=== PATIENT | female | born 1955 | race Caucasian/White ===

== ENCOUNTER 2019-01-23 20:32 | Inpatient (IN) | payer BC, MEDICARE ==
[~2019-01-23] VITALS: Ht 165.1 cm; Wt 74.0 kg
[2019-01-24] VITALS: BP 150/77
[2019-01-24] MEDS ORDERED: ROSU20TA2 PO (00:37)
[2019-01-24] MEDS ORDERED: GABA100C PO (00:38)
[2019-01-24] MEDS ORDERED: ALPR-624 PO (00:39)
--- NOTE | 2019-01-24 00:55 | NUR ---
patient arrived on the floor with EMT's via [place]. Received report from ALFREDITO Lopez at [facility]. Pt came in for inter abd abscess s/t lap appy on 01/[address] Rizzo. pt has no other skin problems, lap sites on abd with steri strips and no s/s of infection. c/o pain 08/22. Dr. Patterson came in and admitted patient and ordered medications.
[2019-01-24] MEDS ORDERED: potassium CL 10mEq/100ml bag 100 ML IV PRN ×2 (01:00)
[2019-01-24] MEDS ORDERED: magnesium 2GM in 50ml NS 50 ML IV PRN (01:00)
[2019-01-24] MEDS ORDERED: potassium Cl 20 mEq SR tablet PO PRN (01:00)
[2019-01-24] MEDS ORDERED: ipratropium/albuterol 3ml nebule NEB PRN (01:00)
[2019-01-24] MEDS ORDERED: ondansetron/PF 4mg/2ml inj IV PRN (01:00)
[2019-01-24] MEDS ORDERED: HYDROmorphone inj. 0.5 MG/0.5 ML DISP.SYRIN IV PRN (01:00)
[2019-01-24] MEDS ORDERED: mag hydrox/Alum hydrox/simeth 30ml oral suspension PO PRN (01:00)
[2019-01-24] MEDS ORDERED: magnesium 4gm in 100ml NS 100 ML IV PRN (01:00)
[2019-01-24] MEDS: ALPRAZolam 0.5mg tablet PO PRN ×2 (01:18→23:38)
[2019-01-24] MEDS: HYDROmorphone 1 mg/ml syringe IV PRN ×4 (01:18→21:16)
[2019-01-24] MEDS: normal saline 1000ml 1,000 ML IV SCH ×3 (01:22→21:23)
[2019-01-24 03:00] LABS: BASOPHILS # (AUTO) 0.1 X10'3 (0-0.2); BASOPHILS % (AUTO) 0.5 % (0-1); EOSINOPHILS % (AUTO) 0.1 % (0-6); HEMATOCRIT 32.7 % (35.0-45.0); HEMOGLOBIN 11.2 g/dl (12.0-16.0); LYMPHOCYTES # (AUTO) 1.4 X10'3 (1.1-4.8); LYMPHOCYTES % (AUTO) 9.7 % (21-51); MEAN CORPUSCULAR HGB CONC 34.2 g/dL (33.0-36.5); MEAN CORPUSCULAR VOLUME 87.7 FL (78-98); MEAN PLATELET VOLUME 7.8 FL (7.4-10.4); MONOCYTES # (AUTO) 1.4 X10'3 (0-0.9); MONOCYTES % (AUTO) 9.8 % (2-12); NEUTROPHILS # (AUTO) 11.4 X10'3 (1.8-7.7); NEUTROPHILS % (AUTO) 79.9 % (42-75); PLATELET COUNT 466 X10'3 (140-440); RED BLOOD COUNT 3.73 X10'6 (4.20-5.60); RED CELL DISTRIBUTION WIDTH 13.6 % (11.5-14.5); WHITE BLOOD COUNT 14.3 X10'3 (4.5-11.0)
[2019-01-24 03:16] LABS: ALANINE AMINOTRANSFERASE 48 U/L (12-78); ALBUMIN 2.2 G/DL (3.4-5.0); ALBUMIN/GLOBULIN RATIO 0.5 (1.1-1.5); ALKALINE PHOSPHATASE 181 IU/L (46-116); ANION GAP 11 (8-16); ASPARTATE AMINO TRANSFERASE 31 U/L (10-37); BILIRUBIN,TOTAL 0.7 MG/DL (0.1-1.0); BLOOD UREA NITROGEN 14 MG/DL (7-18); BUN/CREATININE RATIO 22.6 (6.6-38.0); CALCIUM 8.1 MG/DL (8.5-10.1); CHLORIDE 105 MMOL/L (99-107); CREATININE 0.62 MG/DL (0.40-0.90); GLUCOSE 98 MG/DL (70-104); POTASSIUM 3.6 MMOL/L (3.5-5.1); SODIUM 138 MMOL/L (135-145); TOTAL CARBON DIOXIDE 22.5 MMOL/L (24-32); TOTAL PROTEIN 6.6 G/DL (6.4-8.2); eGFR > 90 ML/MIN
--- NOTE | 2019-01-24 06:47 | NUR ---
Problems reprioritized. Patient report given, questions answered & plan of care reviewed with ALFREDITO monsalve.
--- NOTE | 2019-01-24 06:47 | NUR ---
Patient in room [facility]. I have received report from Loida Dixon RN and had the opportunity to ask questions and assume patient care.
[2019-01-24 08:00] VITALS: BP 103/51
[2019-01-24] MEDS: K and/or MAG REPLACEMENT MC SCH ×2 (08:00→20:00)
[2019-01-24] MEDS: piperacillin/tazo 3.375gm/50ml 50 ML IV SCH ×3 (08:16→23:38)
[2019-01-24] MEDS: enoxaparin 40mg/0.4ml syringe SQ SCH (08:16)
[2019-01-24] MEDS: gabapentin 100mg capsule PO SCH ×3 (08:19→23:38)
[2019-01-24 11:00] VITALS: BP 83/55
[2019-01-24] MEDS: acetaminophen 325mg tablet PO PRN (12:09)
[2019-01-24 13:00] VITALS: BP 95/55
--- NOTE | 2019-01-24 16:34 | NUR ---
Malnutrition consult. Patient admitted with sepsis r/t s/p cholecystectomy and appendectomy surgery. Currently is NPO, is eager to begin eating again. Diet advancement will be per her surgeon, likely to have clear liquids this afternoon and advance as tolerated per bedside RN. Patient reports poor PO intake for two weeks r/t to the surgeries. Her usual body weight is reported to be between 155-160 lbs, currently weighs 163 lbs, no weight loss. Normal muscle strength, no edema. No malnutrition at this time. Patient given written high protein education handout with verbal review r/t infection, encouraged to eat protein when diet is advanced and she verbalized understanding. Will follow. Addendum: 01/24/19 at [address] Amended: Links added.
--- NOTE | 2019-01-24 16:45 | NUR ---
Malnutrition consult. Patient admitted with sepsis r/t s/p cholecystectomy and appendectomy surgery. Currently is NPO, is eager to begin eating again. Diet advancement will be per her surgeon, likely to have clear liquids this afternoon and advance as tolerated per bedside RN. Patient reports poor PO intake for two weeks r/t to the surgeries. Her usual body weight is reported to be between 155-160 lbs, currently weighs 163 lbs, no weight loss. Normal muscle strength, no edema. No malnutrition at this time. Patient given written high protein education handout with verbal review r/t infection, encouraged to eat protein when diet is advanced and she verbalized understanding. Will follow. Recommendation: 1. advance diet as medically indicated to heart healthy 2. bowel care as needed 3. weight per rx Addendum: 01/24/19 at [address] Amended: Links added. Addendum: 01/25/19 at [address] RD agree with note
--- NOTE | 2019-01-24 18:00 | NUR ---
Problems reprioritized. Patient report given, questions answered & plan of care reviewed with Cassandra GLASER.
[2019-01-24 18:45] VITALS: BP 140/78
--- NOTE | 2019-01-24 18:48 | NUR ---
Patient in room [facility]. I have received report from ALFREDITO Burgos and had the opportunity to ask questions and assume patient care.
[2019-01-24] MEDS: atorvastatin 20mg tablet PO SCH (21:00)
[2019-01-24] MEDS: lactobacillus rhamnosus 10,000 MMU CELLS/CAPSULE PO SCH (21:24)
[2019-01-25] VITALS (33 sets, daily range): BP systolic 104–145; BP diastolic 55–100
[2019-01-25] MEDS: HYDROmorphone 1 mg/ml syringe IV PRN ×3 (02:42→22:29)
[2019-01-25 06:44] LABS: BASOPHILS # (AUTO) 0.1 X10'3 (0-0.2); BASOPHILS % (AUTO) 0.8 % (0-1); EOSINOPHILS # (AUTO) 0.1 X10'3 (0-0.9); EOSINOPHILS % (AUTO) 0.5 % (0-6); HEMATOCRIT 29.7 % (35.0-45.0); HEMOGLOBIN 10.3 g/dl (12.0-16.0); LYMPHOCYTES # (AUTO) 1.4 X10'3 (1.1-4.8); LYMPHOCYTES % (AUTO) 14.6 % (21-51); MEAN CORPUSCULAR HEMOGLOBIN 31.1 PG (27.0-31.0); MEAN CORPUSCULAR HGB CONC 34.7 g/dL (33.0-36.5); MEAN CORPUSCULAR VOLUME 89.7 FL (78-98); MEAN PLATELET VOLUME 7.8 FL (7.4-10.4); MONOCYTES % (AUTO) 10.5 % (2-12); NEUTROPHILS # (AUTO) 7.1 X10'3 (1.8-7.7); NEUTROPHILS % (AUTO) 73.6 % (42-75); PLATELET COUNT 426 X10'3 (140-440); RED BLOOD COUNT 3.31 X10'6 (4.20-5.60); RED CELL DISTRIBUTION WIDTH 13.6 % (11.5-14.5); WHITE BLOOD COUNT 9.7 X10'3 (4.5-11.0)
--- NOTE | 2019-01-25 06:56 | NUR ---
Problems reprioritized. Patient report given, questions answered & plan of care reviewed with ALFREDITO Burgos.
[2019-01-25 07:02] LABS: ALANINE AMINOTRANSFERASE 46 U/L (12-78); ALBUMIN/GLOBULIN RATIO 0.5 (1.1-1.5); ALKALINE PHOSPHATASE 164 IU/L (46-116); ANION GAP 5 (8-16); ASPARTATE AMINO TRANSFERASE 41 U/L (10-37); BILIRUBIN,TOTAL 0.6 MG/DL (0.1-1.0); BLOOD UREA NITROGEN 13 MG/DL (7-18); BUN/CREATININE RATIO 23.6 (6.6-38.0); CALCIUM 7.9 MG/DL (8.5-10.1); CHLORIDE 106 MMOL/L (99-107); CREATININE 0.55 MG/DL (0.40-0.90); GLUCOSE 97 MG/DL (70-104); MAGNESIUM 1.9 MG/DL (1.5-2.4); POTASSIUM 3.8 MMOL/L (3.5-5.1); SODIUM 137 MMOL/L (135-145); TOTAL CARBON DIOXIDE 26.5 MMOL/L (24-32); TOTAL PROTEIN 6.2 G/DL (6.4-8.2); eGFR > 90 ML/MIN
[2019-01-25 07:16] LABS: PARTIAL THROMBOPLASTIN TIME 27 SECONDS (22-32)
[2019-01-25] MEDS: K and/or MAG REPLACEMENT MC SCH ×2 (08:00→20:00)
[2019-01-25] MEDS: enoxaparin 40mg/0.4ml syringe SQ SCH (08:00)
[2019-01-25] MEDS: gabapentin 100mg capsule PO SCH ×3 (08:29→23:02)
[2019-01-25] MEDS: lactobacillus rhamnosus 10,000 MMU CELLS/CAPSULE PO SCH ×2 (08:29→22:48)
[2019-01-25] MEDS: normal saline 1000ml 1,000 ML IV SCH ×2 (08:30→16:59)
[2019-01-25] MEDS: piperacillin/tazo 3.375gm/50ml 50 ML IV SCH ×3 (08:30→23:02)
[2019-01-25] MEDS: acetaminophen 325mg tablet PO PRN (09:22)
[2019-01-25] MEDS ORDERED: fentaNYL/PF 50MCG/1 ML 2ML syringe ONE ×3 (10:59→13:30)
[2019-01-25] MEDS ORDERED: midazolam 2 mg/2 ml injection ONE (10:59)
--- NOTE | 2019-01-25 13:56 | NUR ---
Lab called spoke to Sandy- received report that pt was positive for many white cells, many gram negative cells, many gram positive cocci. notified. Pt is in IR having an abscess drainage procedure.
--- NOTE | 2019-01-25 18:00 | NUR ---
Problems reprioritized. Patient report given, questions answered & plan of care reviewed with Cassandra GLASER.
--- NOTE | 2019-01-25 18:30 | NUR ---
Patient in room [facility]. I have received report from ALFREDITO Burgos and had the opportunity to ask questions and assume patient care.
[2019-01-25] MEDS: atorvastatin 20mg tablet PO SCH (21:00)
[2019-01-25] MEDS: ALPRAZolam 0.5mg tablet PO PRN (23:02)
[2019-01-26 00:15] VITALS: BP 163/91
[2019-01-26] MEDS: HYDROmorphone 1 mg/ml syringe IV PRN ×5 (02:34→20:11)
[2019-01-26] MEDS: normal saline 1000ml 1,000 ML IV SCH (04:45)
--- NOTE | 2019-01-26 06:20 | NUR ---
Problems reprioritized. Patient report given, questions answered & plan of care reviewed with ALFREDITO Salazar.
[2019-01-26 06:40] LABS: BASOPHILS % (AUTO) 0.1 % (0-1); EOSINOPHILS # (AUTO) 0.1 X10'3 (0-0.9); EOSINOPHILS % (AUTO) 0.7 % (0-6); HEMATOCRIT 30.2 % (35.0-45.0); HEMOGLOBIN 10.5 g/dl (12.0-16.0); LYMPHOCYTES # (AUTO) 1.5 X10'3 (1.1-4.8); MEAN CORPUSCULAR HEMOGLOBIN 30.4 PG (27.0-31.0); MEAN CORPUSCULAR HGB CONC 34.7 g/dL (33.0-36.5); MEAN CORPUSCULAR VOLUME 87.7 FL (78-98); MONOCYTES # (AUTO) 0.8 X10'3 (0-0.9); MONOCYTES % (AUTO) 8.6 % (2-12); NEUTROPHILS # (AUTO) 6.7 X10'3 (1.8-7.7); NEUTROPHILS % (AUTO) 73.6 % (42-75); PLATELET COUNT 485 X10'3 (140-440); RED BLOOD COUNT 3.44 X10'6 (4.20-5.60); RED CELL DISTRIBUTION WIDTH 13.3 % (11.5-14.5); WHITE BLOOD COUNT 9.1 X10'3 (4.5-11.0)
[2019-01-26 06:59] LABS: ALANINE AMINOTRANSFERASE 50 U/L (12-78); ALBUMIN 1.9 G/DL (3.4-5.0); ALBUMIN/GLOBULIN RATIO 0.5 (1.1-1.5); ALKALINE PHOSPHATASE 147 IU/L (46-116); ANION GAP 7 (8-16); ASPARTATE AMINO TRANSFERASE 41 U/L (10-37); BILIRUBIN,TOTAL 0.4 MG/DL (0.1-1.0); BLOOD UREA NITROGEN 9 MG/DL (7-18); BUN/CREATININE RATIO 18.8 (6.6-38.0); CALCIUM 7.9 MG/DL (8.5-10.1); CHLORIDE 106 MMOL/L (99-107); CREATININE 0.48 MG/DL (0.40-0.90); GLUCOSE 97 MG/DL (70-104); MAGNESIUM 1.6 MG/DL (1.5-2.4); POTASSIUM 3.4 MMOL/L (3.5-5.1); SODIUM 138 MMOL/L (135-145); TOTAL CARBON DIOXIDE 25.3 MMOL/L (24-32); TOTAL PROTEIN 6.1 G/DL (6.4-8.2); eGFR > 90 ML/MIN
[2019-01-26 07:00] VITALS: BP 165/91
[2019-01-26] MEDS: lactobacillus rhamnosus 10,000 MMU CELLS/CAPSULE PO SCH ×2 (07:59→20:21)
[2019-01-26] MEDS: gabapentin 100mg capsule PO SCH ×2 (07:59→16:06)
[2019-01-26] MEDS: K and/or MAG REPLACEMENT MC SCH ×2 (08:00→19:51)
[2019-01-26] MEDS: enoxaparin 40mg/0.4ml syringe SQ SCH (08:00)
[2019-01-26] MEDS: piperacillin/tazo 3.375gm/50ml 50 ML IV SCH ×2 (08:00→16:06)
[2019-01-26] MEDS: potassium Cl 20 mEq SR tablet PO PRN ×3 (08:42→20:20)
[2019-01-26 11:00] VITALS: BP 131/83
[2019-01-26 18:15] VITALS: BP 151/85
--- NOTE | 2019-01-26 18:20 | NUR ---
Patient in room [facility]. I have received report from ALFREDITO Salazar and had the opportunity to ask questions and assume patient care.
[2019-01-26] MEDS: ALPRAZolam 0.5mg tablet PO PRN (20:20)
[2019-01-26] MEDS: atorvastatin 20mg tablet PO SCH (21:00)
[2019-01-27] MEDS: gabapentin 100mg capsule PO SCH ×4 (00:09→23:29)
[2019-01-27] MEDS: piperacillin/tazo 3.375gm/50ml 50 ML IV SCH ×4 (00:10→23:30)
[2019-01-27] MEDS: HYDROmorphone 1 mg/ml syringe IV PRN ×6 (00:12→23:28)
[2019-01-27 00:15] VITALS: BP 142/83
[2019-01-27 06:27] LABS: BASOPHILS # (AUTO) 0.1 X10'3 (0-0.2); BASOPHILS % (AUTO) 1.4 % (0-1); EOSINOPHILS # (AUTO) 0.1 X10'3 (0-0.9); EOSINOPHILS % (AUTO) 1.2 % (0-6); HEMATOCRIT 32.6 % (35.0-45.0); HEMOGLOBIN 11.2 g/dl (12.0-16.0); LYMPHOCYTES # (AUTO) 1.2 X10'3 (1.1-4.8); LYMPHOCYTES % (AUTO) 20.2 % (21-51); MEAN CORPUSCULAR HEMOGLOBIN 30.2 PG (27.0-31.0); MEAN CORPUSCULAR HGB CONC 34.5 g/dL (33.0-36.5); MEAN CORPUSCULAR VOLUME 87.6 FL (78-98); MEAN PLATELET VOLUME 8.1 FL (7.4-10.4); MONOCYTES # (AUTO) 0.7 X10'3 (0-0.9); MONOCYTES % (AUTO) 10.8 % (2-12); NEUTROPHILS # (AUTO) 4.1 X10'3 (1.8-7.7); NEUTROPHILS % (AUTO) 66.4 % (42-75); PLATELET COUNT 542 X10'3 (140-440); RED BLOOD COUNT 3.72 X10'6 (4.20-5.60); RED CELL DISTRIBUTION WIDTH 13.3 % (11.5-14.5); WHITE BLOOD COUNT 6.1 X10'3 (4.5-11.0)
--- NOTE | 2019-01-27 06:30 | NUR ---
Problems reprioritized. Patient report given, questions answered & plan of care reviewed with ALFREDITO Champion.
[2019-01-27 06:43] LABS: ALANINE AMINOTRANSFERASE 46 U/L (12-78); ALBUMIN/GLOBULIN RATIO 0.5 (1.1-1.5); ALKALINE PHOSPHATASE 131 IU/L (46-116); ANION GAP 7 (8-16); ASPARTATE AMINO TRANSFERASE 31 U/L (10-37); BILIRUBIN,TOTAL 0.4 MG/DL (0.1-1.0); BLOOD UREA NITROGEN 5 MG/DL (7-18); BUN/CREATININE RATIO 10.2 (6.6-38.0); CALCIUM 8.2 MG/DL (8.5-10.1); CHLORIDE 103 MMOL/L (99-107); CREATININE 0.49 MG/DL (0.40-0.90); GLUCOSE 103 MG/DL (70-104); MAGNESIUM 1.6 MG/DL (1.5-2.4); POTASSIUM 3.6 MMOL/L (3.5-5.1); SODIUM 138 MMOL/L (135-145); TOTAL CARBON DIOXIDE 27.6 MMOL/L (24-32); TOTAL PROTEIN 6.4 G/DL (6.4-8.2); eGFR > 90 ML/MIN
--- NOTE | 2019-01-27 06:43 | NUR ---
Patient in room [facility]. I have received report from Cassandra GLASER and had the opportunity to ask questions and assume patient care.
[2019-01-27] MEDS: lactobacillus rhamnosus 10,000 MMU CELLS/CAPSULE PO SCH ×2 (07:55→19:26)
[2019-01-27] MEDS: enoxaparin 40mg/0.4ml syringe SQ SCH (07:56)
[2019-01-27] MEDS: K and/or MAG REPLACEMENT MC SCH ×2 (08:00→20:00)
[2019-01-27 12:00] VITALS: BP 150/96
--- NOTE | 2019-01-27 15:16 | NUR ---
Reassessment: Pt PO fluctuates but overall 75% avg meals on regular diet. HEATHER drains -65ml per EMR. LBM 01/26 small w/ some abdominal pain noted today per EMR. PO continues to improve each day. Will continue to monitor for additional protein needs post-op. Recommendation: 1. advance diet as medically indicated to heart healthy 2. bowel care as needed 3. monitor for additional protein needs 4. weight per rx Addendum: 01/27/19 at [address] Amended: Links added.
--- NOTE | 2019-01-27 18:39 | NUR ---
Patient in room [facility]. I have received report from STANLEY GLASER and had the opportunity to ask questions and assume patient care. Addendum: 01/27/19 at 1840 by Thelma Suárez RN Amended: Links added.
--- NOTE | 2019-01-27 18:42 | NUR ---
Problems reprioritized. Patient report given, questions answered & plan of care reviewed with Thelma GLASER.
[2019-01-27 19:18] VITALS: BP 165/92
[2019-01-27] MEDS: atorvastatin 20mg tablet PO SCH (19:28)
--- NOTE | 2019-01-27 19:30 | NUR ---
pt took hs meds and medicated for c/o pain with Dilaudid for this. pt states feels much better after she had one drain removed. she's hoping that everything she's been through now gets resolved. does not want to leave until sure she will be able to stay home after this discharge. said she had the first real good normal bm today which she doesn't feel she has had for last year or so until today, per pt words.
--- NOTE | 2019-01-27 21:00 | NUR ---
pt resting eyes closed without s&s of distress at this time.
[2019-01-27] MEDS: ALPRAZolam 0.5mg tablet PO PRN (22:56)
--- NOTE | 2019-01-27 22:57 | NUR ---
pt c/o anxiety and medicated with xanax for this.
--- NOTE | 2019-01-27 23:25 | NUR ---
medicated for pain with Dilaudid.
[2019-01-27 23:40] VITALS: BP 170/96
--- NOTE | 2019-01-28 | NUR ---
resting eyes closed without changes.
--- NOTE | 2019-01-28 01:54 | NUR ---
resting eyes closed no s&s of distress at this time.
--- NOTE | 2019-01-28 03:50 | NUR ---
resting eyes closed without changes.
[2019-01-28] MEDS: HYDROmorphone 1 mg/ml syringe IV PRN ×3 (05:01→20:03)
--- NOTE | 2019-01-28 05:08 | NUR ---
awoke medicated for pain 5/10 then up to brp then lab in to draw blood on her.
--- NOTE | 2019-01-28 06:02 | NUR ---
Problems reprioritized. Patient report given, questions answered & plan of care reviewed with STANLEY GLASER. Addendum: 01/28/19 at 0603 by Thelma Suárez RN Amended: Links added.
--- NOTE | 2019-01-28 06:22 | NUR ---
Patient in room [facility]. I have received report from Thelma GLASER and had the opportunity to ask questions and assume patient care.
[2019-01-28 06:44] LABS: EOSINOPHILS # (AUTO) 0.1 X10'3 (0-0.9); MONOCYTES # (AUTO) 0.6 X10'3 (0-0.9); RED BLOOD COUNT 4.08 X10'6 (4.20-5.60)
[2019-01-28 06:46] LABS: BASOPHILS # (AUTO) 0.1 X10'3 (0-0.2); BASOPHILS % (AUTO) 1.1 % (0-1); EOSINOPHILS % (AUTO) 1.6 % (0-6); HEMATOCRIT 36.1 % (35.0-45.0); HEMOGLOBIN 12.4 g/dl (12.0-16.0); LYMPHOCYTES % (AUTO) 34.7 % (21-51); MEAN CORPUSCULAR HEMOGLOBIN 30.5 PG (27.0-31.0); MEAN CORPUSCULAR HGB CONC 34.5 g/dL (33.0-36.5); MEAN CORPUSCULAR VOLUME 88.5 FL (78-98); MEAN PLATELET VOLUME 7.9 FL (7.4-10.4); NEUTROPHILS % (AUTO) 51.6 % (42-75); PLATELET COUNT 611 X10'3 (140-440); RED CELL DISTRIBUTION WIDTH 13.2 % (11.5-14.5); WHITE BLOOD COUNT 5.9 X10'3 (4.5-11.0)
[2019-01-28 07:10] LABS: ALANINE AMINOTRANSFERASE 45 U/L (12-78); ALBUMIN 2.3 G/DL (3.4-5.0); ALBUMIN/GLOBULIN RATIO 0.5 (1.1-1.5); ALKALINE PHOSPHATASE 142 IU/L (46-116); ANION GAP 5 (8-16); ASPARTATE AMINO TRANSFERASE 34 U/L (10-37); BILIRUBIN,TOTAL 0.3 MG/DL (0.1-1.0); BLOOD UREA NITROGEN 7 MG/DL (7-18); BUN/CREATININE RATIO 10.9 (6.6-38.0); CALCIUM 8.8 MG/DL (8.5-10.1); CHLORIDE 103 MMOL/L (99-107); CREATININE 0.64 MG/DL (0.40-0.90); GLUCOSE 95 MG/DL (70-104); MAGNESIUM 1.8 MG/DL (1.5-2.4); POTASSIUM 3.8 MMOL/L (3.5-5.1); SODIUM 138 MMOL/L (135-145); TOTAL CARBON DIOXIDE 30.5 MMOL/L (24-32); TOTAL PROTEIN 7.1 G/DL (6.4-8.2); eGFR > 90 ML/MIN
[2019-01-28] MEDS: gabapentin 100mg capsule PO SCH ×2 (07:35→15:42)
[2019-01-28] MEDS: lactobacillus rhamnosus 10,000 MMU CELLS/CAPSULE PO SCH ×2 (07:35→19:48)
[2019-01-28] MEDS: enoxaparin 40mg/0.4ml syringe SQ SCH (07:36)
[2019-01-28] MEDS: piperacillin/tazo 3.375gm/50ml 50 ML IV SCH ×2 (07:39→15:42)
[2019-01-28 07:49] VITALS: BP 153/92
[2019-01-28] MEDS: K and/or MAG REPLACEMENT MC SCH ×2 (08:00→20:00)
--- NOTE | 2019-01-28 18:31 | NUR ---
Patient in room [facility]. I have received report from STANLEY GLASER and had the opportunity to ask questions and assume patient care. Addendum: 01/28/19 at 1832 by Thelma Suárez RN Amended: Links added.
--- NOTE | 2019-01-28 18:36 | NUR ---
Problems reprioritized. Patient report given, questions answered & plan of care reviewed with Thelma GLASER.
[2019-01-28 19:30] VITALS: BP 172/101
[2019-01-28] MEDS: ALPRAZolam 0.5mg tablet PO PRN (19:48)
--- NOTE | 2019-01-28 19:59 | NUR ---
pt medicated for c/o pain at this time.
--- NOTE | 2019-01-28 20:01 | NUR ---
pt medicated with xanax upset with family for borrowing her car without permission and not coming in to see her today. bp elevated due to this and pain.
[2019-01-28] MEDS: atorvastatin 20mg tablet PO SCH (20:04)
--- NOTE | 2019-01-28 20:05 | NUR ---
pt refuseslipitor does not take it due to side effects takes crestor.
--- NOTE | 2019-01-28 21:00 | NUR ---
resting eyes closed .
--- NOTE | 2019-01-28 21:55 | NUR ---
awake now talking with family on the phone.
--- NOTE | 2019-01-29 | NUR ---
resting without changes.
[2019-01-29 00:26] VITALS: BP 144/87
--- NOTE | 2019-01-29 00:30 | NUR ---
charlee took po meds and iv abx hung.
[2019-01-29] MEDS: piperacillin/tazo 3.375gm/50ml 50 ML IV SCH ×2 (00:42→11:05)
[2019-01-29] MEDS: gabapentin 100mg capsule PO SCH ×2 (00:43→11:06)
--- NOTE | 2019-01-29 02:08 | NUR ---
resting eyes closed no s&s of distress aT THIS TIME.
--- NOTE | 2019-01-29 04:05 | NUR ---
resting eyes closed without changes.
--- NOTE | 2019-01-29 05:24 | NUR ---
resting on her side eyes closed without s&s of distress at this time.
--- NOTE | 2019-01-29 06:09 | NUR ---
Problems reprioritized. Patient report given, questions answered & plan of care reviewed with GEM GLASER. Addendum: 01/29/19 at 0701 by Thelma Suárez RN Amended: Links added.
[2019-01-29 06:14] LABS: ALANINE AMINOTRANSFERASE 46 U/L (12-78); ALBUMIN 2.5 G/DL (3.4-5.0); ALBUMIN/GLOBULIN RATIO 0.5 (1.1-1.5); ALKALINE PHOSPHATASE 138 IU/L (46-116); ANION GAP 5 (8-16); ASPARTATE AMINO TRANSFERASE 41 U/L (10-37); BILIRUBIN,TOTAL 0.3 MG/DL (0.1-1.0); BLOOD UREA NITROGEN 12 MG/DL (7-18); BUN/CREATININE RATIO 17.1 (6.6-38.0); CALCIUM 9.4 MG/DL (8.5-10.1); CHLORIDE 103 MMOL/L (99-107); GLUCOSE 107 MG/DL (70-104); POTASSIUM 3.9 MMOL/L (3.5-5.1); SODIUM 137 MMOL/L (135-145); TOTAL CARBON DIOXIDE 28.7 MMOL/L (24-32); TOTAL PROTEIN 7.4 G/DL (6.4-8.2); eGFR 84 ML/MIN
[2019-01-29 06:17] LABS: BASOPHILS % (AUTO) 0.4 % (0-1); EOSINOPHILS # (AUTO) 0.1 X10'3 (0-0.9); EOSINOPHILS % (AUTO) 1.6 % (0-6); HEMATOCRIT 38.4 % (35.0-45.0); HEMOGLOBIN 13.5 g/dl (12.0-16.0); LYMPHOCYTES # (AUTO) 1.7 X10'3 (1.1-4.8); LYMPHOCYTES % (AUTO) 26.9 % (21-51); MEAN CORPUSCULAR HEMOGLOBIN 30.8 PG (27.0-31.0); MEAN CORPUSCULAR HGB CONC 35.1 g/dL (33.0-36.5); MEAN CORPUSCULAR VOLUME 87.7 FL (78-98); MEAN PLATELET VOLUME 7.4 FL (7.4-10.4); MONOCYTES # (AUTO) 0.6 X10'3 (0-0.9); MONOCYTES % (AUTO) 9.1 % (2-12); PLATELET COUNT 653 X10'3 (140-440); RED BLOOD COUNT 4.37 X10'6 (4.20-5.60); RED CELL DISTRIBUTION WIDTH 13.4 % (11.5-14.5); WHITE BLOOD COUNT 6.4 X10'3 (4.5-11.0)
--- NOTE | 2019-01-29 06:35 | NUR ---
Patient in room [facility]. I have received report from ALFREDITO ALLEN and had the opportunity to ask questions and assume patient care.
[2019-01-29 07:00] VITALS: BP 148/99
[2019-01-29] MEDS: K and/or MAG REPLACEMENT MC SCH (08:00)
[2019-01-29 11:00] VITALS: BP 140/101
[2019-01-29] MEDS: enoxaparin 40mg/0.4ml syringe SQ SCH (11:06)
[2019-01-29] MEDS: lactobacillus rhamnosus 10,000 MMU CELLS/CAPSULE PO SCH (11:06)
[2019-01-29] MEDS ORDERED: METR-159 PO (13:31)
[2019-01-29] MEDS ORDERED: LEVO750T21 PO (13:31)
--- NOTE | 2019-01-29 15:15 | NUR ---
PATIENT STABLE AND APPROPRIATE FOR DISCHARGE, IV TAKEN OUT, EDUCATION GIVEN, PATIENT GIVEN SUPPLIES AND EDUCATION FOR HEATHER IRRIGATION, ALL BELONGINGS SENT WITH PATIENT, PATIENT TAKEN TO LOBBY IN WHEELCHAIR TO AN AWAITING CAR WHERE FAMILY MEMBER WILL TAKE HER HOME
== END 2019-01-29 15:15 | disposition home or self-care (01) | DRG 862 ==
LOC: UNDOADMIN 23:22 → SUR 3N 23:22
PROVIDERS: ADMIT Family Medicine; ATTEND Family Medicine
PROC: 0W9G30Z Drainage of Peritoneal Cavity with Drainage Device, Percutaneous Approach (ICD-10-PCS; principal; 2019-01-25)
DX: T81.41XA Infection following a procedure, superficial incisional surgical site, initial encounter (principal); K65.1 Peritoneal abscess; F17.210 Nicotine dependence, cigarettes, uncomplicated; Y83.8 Other surgical procedures as the cause of abnormal reaction of the patient, or of later complication, without mention of misadventure at the time of the procedure; B96.20 Unspecified Escherichia coli [E. coli] as the cause of diseases classified elsewhere; B95.4 Other streptococcus as the cause of diseases classified elsewhere; E78.00 Pure hypercholesterolemia, unspecified; E78.5 Hyperlipidemia, unspecified; Z90.49 Acquired absence of other specified parts of digestive tract; Z88.5 Allergy status to narcotic agent; Z79.899 Other long term (current) drug therapy; Z71.6 Tobacco abuse counseling; Y92.89 Other specified places as the place of occurrence of the external cause
CPT/HCPCS: 36415; 49406; 80053; 83605; 83735; 85025; 85610; 85730; 87040; 87070; 87077; 87081; 87186; 94760; 99152; 99153; G0378; J1170; J1650; J2250; J2543; J3010; J7030